=== PATIENT | male | born 1985 | race Caucasian/White ===

== ENCOUNTER 2021-05-31 14:04 | Inpatient (IN) | payer OTHER ==
[2021-05-31 15:38] VITALS: BMI 29.0
[2021-05-31] MEDS ORDERED: guaiFENesin 200 MG/10 ML 10 ML UNIT-DOSE CUPS PO PRN (16:17)
[2021-05-31] MEDS ORDERED: MAGNESIUM HYDROX 2400MG/30ML ORAL SUSPENSION 30 ML CUP PO PRN (16:17)
[2021-05-31] MEDS ORDERED: NICOTINE 10 MG CARTRIDGE (INHALER) IH PRN (16:17)
[2021-05-31] MEDS ORDERED: IBUPROFEN 400 MG TABLET (FP) PO PRN (16:17)
[2021-05-31] MEDS ORDERED: MAGNESIUM CITRATE 300 ML BOTTLE PO PRN (16:17)
[2021-05-31] MEDS ORDERED: LOPERAMIDE HCL 2 MG CAPSULE PO PRN (16:17)
[2021-05-31] MEDS ORDERED: P-EPHED 60MG/TRIPROLIDI 2.5MG TABLET PO PRN (16:17)
[2021-05-31] MEDS ORDERED: methaDONE HCL 10 MG TABLET (FOR DETOX USE ONLY) PO ONE (16:24)
[2021-05-31] MEDS: hydrOXYzine PAMOATE 25 MG CAPSULE (FP) PO SCH ×2 (18:27→21:25)
[2021-05-31] MEDS ORDERED: methaDONE HCL 10 MG TABLET PO ONE (18:30)
[2021-05-31] MEDS: THIAMINE HCL 100 MG TABLET (FP) PO SCH (21:25)
[2021-05-31] MEDS: GABAPENTIN 300 MG CAPSULE PO SCH (21:25)
[2021-05-31] MEDS ORDERED: MELATONIN 5 MG TABLETS PO SCH (22:00)
[2021-06-01] MEDS: GABAPENTIN 300 MG CAPSULE PO SCH ×3 (06:27→21:48)
[2021-06-01] MEDS: hydrOXYzine PAMOATE 25 MG CAPSULE (FP) PO SCH ×5 (06:27→23:42)
[2021-06-01] MEDS ORDERED: PT OWN MED DRAWER 7, Y5N ONE (08:49)
[2021-06-01] MEDS: PRENATAL VITAMINS W/ FOLIC ACID TABLET (FP) PO SCH (10:06)
[2021-06-01] MEDS: NICOTINE 14 MG/24 HOURS TOPICAL PATCH TD SCH (10:06)
[2021-06-01] MEDS: METHIMAZOLE 10 MG TABLET PO SCH (10:06)
[2021-06-01] MEDS ORDERED: methaDONE HCL 10 MG TABLET ONE (13:01)
[2021-06-01] MEDS ORDERED: methaDONE HCL 40 MG DISPERSABLE TABLET ONE (13:01)
[2021-06-01] MEDS: methaDONE 40 MG, methaDONE 30 MG PO SCH (13:02)
[2021-06-01 15:02] LABS: HEMATOCRIT 44.5 % (35.4-49); HEMOGLOBIN 15.3 GM/dL (11.7-16.9); MCH 31.7 pg (25.7-33.7); MCHC 34.3 g/dl (32.0-35.9); MEAN CELL VOLUME 92.6 fl (80-96); MEAN PLT VOLUME 10.2 fl (7.5-11.1); PLATELET COUNT 128 10^3/uL (134-434); RBC 4.81 M/mm3 (4.00-5.60); RDW 15.5 % (11.9-15.9); WHITE BLOOD COUNT 6.2 K/mm3 (4.0-10.0)
[2021-06-01 15:14] LABS: CREATININE 0.9 mg/dL (0.55-1.3)
[2021-06-01 15:17] LABS: ALBUMIN 4.1 g/dl (3.4-5.0); BILIRUBIN,TOTAL 1.3 mg/dL (0.2-1); BLOOD UREA NITROGEN 21.4 mg/dL (7-18)
[2021-06-01 15:19] LABS: CALCIUM 8.8 mg/dL (8.5-10.1)
[2021-06-01 15:32] LABS: SYPHILIS W/ RPR CONF NON-REACTIVE (NONREACTIVE)
[2021-06-01] MEDS: THIAMINE HCL 100 MG TABLET (FP) PO SCH (21:48)
[2021-06-01] MEDS: QUEtiapine FUMARATE 300 MG TABLET PO SCH (21:48)
[2021-06-02] MEDS ORDERED: methaDONE HCL 40 MG DISPERSABLE TABLET ONE (03:39)
[2021-06-02] MEDS ORDERED: methaDONE HCL 10 MG TABLET ONE (03:39)
[2021-06-02] MEDS ORDERED: PT OWN MED DRAWER 7, Y5N ONE (07:27)
[2021-06-02] MEDS: methaDONE 40 MG, methaDONE 30 MG PO SCH (07:48)
[2021-06-02] MEDS: hydrOXYzine PAMOATE 25 MG CAPSULE (FP) PO SCH ×5 (07:48→21:48)
[2021-06-02] MEDS: GABAPENTIN 300 MG CAPSULE PO SCH ×3 (07:48→21:48)
[2021-06-02] MEDS: NICOTINE 14 MG/24 HOURS TOPICAL PATCH TD SCH (10:09)
[2021-06-02] MEDS: PRENATAL VITAMINS W/ FOLIC ACID TABLET (FP) PO SCH (10:09)
[2021-06-02] MEDS: METHIMAZOLE 10 MG TABLET PO SCH (10:09)
[2021-06-02 15:51] LABS: PH,URINE 6.5 (5.0-8.0); URINE APPEARANCE CLEAR; URINE BILIRUBIN NEGATIVE (NEGATIVE); URINE COLOR YELLOW; URINE GLUCOSE (UA) NEGATIVE (NEGATIVE); URINE KETONE NEGATIVE (NEGATIVE); URINE LEUK ESTERASE NEGATIVE (NEGATIVE); URINE NITRITE NEGATIVE (NEGATIVE); URINE PROTEIN NEGATIVE (NEGATIVE); URINE UROBILINOGEN 0.2 mg/dL (0.2-1.0)
[2021-06-02] MEDS: THIAMINE HCL 100 MG TABLET (FP) PO SCH (21:48)
[2021-06-02] MEDS: QUEtiapine FUMARATE 300 MG TABLET PO SCH (21:48)
[2021-06-03] MEDS ORDERED: methaDONE HCL 10 MG TABLET ONE (04:03)
[2021-06-03] MEDS ORDERED: methaDONE HCL 40 MG DISPERSABLE TABLET ONE (04:04)
[2021-06-03] MEDS: methaDONE 40 MG, methaDONE 30 MG PO SCH (06:40)
[2021-06-03] MEDS: GABAPENTIN 300 MG CAPSULE PO SCH ×3 (06:40→21:15)
[2021-06-03] MEDS: hydrOXYzine PAMOATE 25 MG CAPSULE (FP) PO SCH ×5 (07:30→21:16)
[2021-06-03] MEDS: METHIMAZOLE 10 MG TABLET PO SCH (11:05)
[2021-06-03] MEDS: PRENATAL VITAMINS W/ FOLIC ACID TABLET (FP) PO SCH (11:05)
[2021-06-03] MEDS: NICOTINE 14 MG/24 HOURS TOPICAL PATCH TD SCH (11:05)
[2021-06-03] MEDS: MAG HYDROX/AL HYDROX/SIMETH 30 ML UNIT-DOSE CUP PO PRN (11:06)
[2021-06-03] MEDS: THIAMINE HCL 100 MG TABLET (FP) PO SCH (21:15)
[2021-06-03] MEDS: QUEtiapine FUMARATE 300 MG TABLET PO SCH (21:15)
[2021-06-04] MEDS ORDERED: methaDONE HCL 40 MG DISPERSABLE TABLET ONE (03:54)
[2021-06-04] MEDS ORDERED: methaDONE HCL 10 MG TABLET ONE (03:54)
[2021-06-04] MEDS: GABAPENTIN 300 MG CAPSULE PO SCH ×3 (06:27→21:05)
[2021-06-04] MEDS: methaDONE 40 MG, methaDONE 30 MG PO SCH (06:27)
[2021-06-04] MEDS: hydrOXYzine PAMOATE 25 MG CAPSULE (FP) PO SCH ×3 (07:03→14:01)
[2021-06-04] MEDS: NICOTINE 14 MG/24 HOURS TOPICAL PATCH TD SCH (09:20)
[2021-06-04] MEDS: PRENATAL VITAMINS W/ FOLIC ACID TABLET (FP) PO SCH (09:21)
[2021-06-04] MEDS: METHIMAZOLE 10 MG TABLET PO SCH (09:22)
[2021-06-04] MEDS ORDERED: hydrOXYzine PAMOATE 25 MG CAPSULE (FP) PO PRN (15:08)
[2021-06-04] MEDS: THIAMINE HCL 100 MG TABLET (FP) PO SCH (21:05)
[2021-06-04] MEDS: QUEtiapine FUMARATE 300 MG TABLET PO SCH (21:05)
[2021-06-05] MEDS ORDERED: methaDONE HCL 40 MG DISPERSABLE TABLET ONE (03:40)
[2021-06-05] MEDS ORDERED: methaDONE HCL 10 MG TABLET ONE (03:40)
[2021-06-05] MEDS: methaDONE 40 MG, methaDONE 30 MG PO SCH (06:37)
[2021-06-05] MEDS: GABAPENTIN 300 MG CAPSULE PO SCH ×3 (06:37→21:44)
[2021-06-05] MEDS: NICOTINE 14 MG/24 HOURS TOPICAL PATCH TD SCH (09:30)
[2021-06-05] MEDS: METHIMAZOLE 10 MG TABLET PO SCH (09:30)
[2021-06-05] MEDS: PRENATAL VITAMINS W/ FOLIC ACID TABLET (FP) PO SCH (09:30)
[2021-06-05] MEDS: THIAMINE HCL 100 MG TABLET (FP) PO SCH (21:44)
[2021-06-05] MEDS: QUEtiapine FUMARATE 300 MG TABLET PO SCH (21:44)
[2021-06-06] MEDS ORDERED: methaDONE HCL 10 MG TABLET ONE (03:25)
[2021-06-06] MEDS ORDERED: methaDONE HCL 40 MG DISPERSABLE TABLET ONE (03:25)
[2021-06-06] MEDS: GABAPENTIN 300 MG CAPSULE PO SCH ×3 (06:50→21:52)
[2021-06-06] MEDS: methaDONE 40 MG, methaDONE 30 MG PO SCH (06:50)
[2021-06-06] MEDS: NICOTINE 14 MG/24 HOURS TOPICAL PATCH TD SCH (09:54)
[2021-06-06] MEDS: PRENATAL VITAMINS W/ FOLIC ACID TABLET (FP) PO SCH (09:54)
[2021-06-06] MEDS: METHIMAZOLE 10 MG TABLET PO SCH (09:55)
[2021-06-06] MEDS ORDERED: PT OWN MED DRAWER 7, Y5N ONE (11:53)
[2021-06-06] MEDS: QUEtiapine FUMARATE 300 MG TABLET PO SCH (21:52)
[2021-06-06] MEDS: THIAMINE HCL 100 MG TABLET (FP) PO SCH (21:53)
[2021-06-07] MEDS ORDERED: methaDONE HCL 40 MG DISPERSABLE TABLET ONE (04:08)
[2021-06-07] MEDS ORDERED: methaDONE HCL 10 MG TABLET ONE (04:08)
[2021-06-07] MEDS: GABAPENTIN 300 MG CAPSULE PO SCH ×2 (06:44→21:05)
[2021-06-07] MEDS: methaDONE 40 MG, methaDONE 30 MG PO SCH (06:44)
[2021-06-07] MEDS: METHIMAZOLE 10 MG TABLET PO SCH (09:49)
[2021-06-07] MEDS: PRENATAL VITAMINS W/ FOLIC ACID TABLET (FP) PO SCH (09:49)
[2021-06-07] MEDS: NICOTINE 14 MG/24 HOURS TOPICAL PATCH TD SCH (09:50)
[2021-06-07] MEDS ORDERED: PT OWN MED DRAWER 7, Y5N ONE (15:41)
[2021-06-07] MEDS: MAG HYDROX/AL HYDROX/SIMETH 30 ML UNIT-DOSE CUP PO PRN (18:48)
[2021-06-07] MEDS: THIAMINE HCL 100 MG TABLET (FP) PO SCH (21:04)
[2021-06-07] MEDS: QUEtiapine FUMARATE 300 MG TABLET PO SCH (21:04)
[2021-06-08] MEDS ORDERED: methaDONE HCL 10 MG TABLET ONE (03:30)
[2021-06-08] MEDS ORDERED: methaDONE HCL 40 MG DISPERSABLE TABLET ONE (03:31)
[2021-06-08] MEDS: methaDONE 40 MG, methaDONE 30 MG PO SCH (06:51)
[2021-06-08] MEDS ORDERED: PT OWN MED DRAWER 7, Y5N ONE ×2 (07:01→08:27)
[2021-06-08] MEDS: METHIMAZOLE 10 MG TABLET PO SCH ×2 (08:17→08:24)
[2021-06-08] MEDS: PRENATAL VITAMINS W/ FOLIC ACID TABLET (FP) PO SCH (09:50)
[2021-06-08] MEDS: NICOTINE 14 MG/24 HOURS TOPICAL PATCH TD SCH (09:50)
[2021-06-08] MEDS: GABAPENTIN 300 MG CAPSULE PO SCH ×2 (09:50→21:49)
[2021-06-08] MEDS: QUEtiapine FUMARATE 300 MG TABLET PO SCH (21:49)
[2021-06-08] MEDS: THIAMINE HCL 100 MG TABLET (FP) PO SCH (21:49)
[2021-06-09] MEDS ORDERED: methaDONE HCL 10 MG TABLET ONE (03:48)
[2021-06-09] MEDS ORDERED: methaDONE HCL 40 MG DISPERSABLE TABLET ONE (03:48)
[2021-06-09] MEDS ORDERED: PT OWN MED DRAWER 7, Y5N ONE ×3 (03:49→16:18)
[2021-06-09] MEDS: methaDONE 40 MG, methaDONE 30 MG PO SCH (06:42)
[2021-06-09] MEDS: METHIMAZOLE 10 MG TABLET PO SCH (06:43)
[2021-06-09] MEDS: GABAPENTIN 300 MG CAPSULE PO SCH ×2 (09:06→21:37)
[2021-06-09] MEDS: NICOTINE 14 MG/24 HOURS TOPICAL PATCH TD SCH (09:06)
[2021-06-09] MEDS: PRENATAL VITAMINS W/ FOLIC ACID TABLET (FP) PO SCH (09:06)
[2021-06-09] MEDS: QUEtiapine FUMARATE 300 MG TABLET PO SCH (21:37)
[2021-06-09] MEDS: THIAMINE HCL 100 MG TABLET (FP) PO SCH (21:38)
[2021-06-10] MEDS ORDERED: methaDONE HCL 10 MG TABLET ONE (02:45)
[2021-06-10] MEDS ORDERED: methaDONE HCL 40 MG DISPERSABLE TABLET ONE (02:46)
[2021-06-10] MEDS ORDERED: MASKS NR ONE (05:40)
[2021-06-10] MEDS: methaDONE 40 MG, methaDONE 30 MG PO SCH (06:19)
[2021-06-10] MEDS: METHIMAZOLE 10 MG TABLET PO SCH (06:22)
[2021-06-10] MEDS ORDERED: PT OWN MED DRAWER 7, Y5N ONE (06:23)
[2021-06-10] MEDS: GABAPENTIN 300 MG CAPSULE PO SCH ×2 (09:55→21:30)
[2021-06-10] MEDS: PRENATAL VITAMINS W/ FOLIC ACID TABLET (FP) PO SCH (09:56)
[2021-06-10] MEDS: NICOTINE 14 MG/24 HOURS TOPICAL PATCH TD SCH (09:56)
[2021-06-10] MEDS: THIAMINE HCL 100 MG TABLET (FP) PO SCH (21:30)
[2021-06-10] MEDS: QUEtiapine FUMARATE 300 MG TABLET PO SCH (21:30)
[2021-06-11] MEDS ORDERED: methaDONE HCL 10 MG TABLET ONE (03:28)
[2021-06-11] MEDS ORDERED: methaDONE HCL 40 MG DISPERSABLE TABLET ONE (03:28)
[2021-06-11] MEDS: METHIMAZOLE 10 MG TABLET PO SCH (06:46)
[2021-06-11] MEDS: methaDONE 40 MG, methaDONE 30 MG PO SCH (06:47)
[2021-06-11] MEDS: GABAPENTIN 300 MG CAPSULE PO SCH ×2 (09:53→21:39)
[2021-06-11] MEDS: NICOTINE 14 MG/24 HOURS TOPICAL PATCH TD SCH (09:53)
[2021-06-11] MEDS: PRENATAL VITAMINS W/ FOLIC ACID TABLET (FP) PO SCH (09:53)
[2021-06-11] MEDS ORDERED: PANTOPRAZOLE 20 MG TABLET PO SCH (10:00)
[2021-06-11] MEDS: QUEtiapine FUMARATE 300 MG TABLET PO SCH (21:39)
[2021-06-11] MEDS: THIAMINE HCL 100 MG TABLET (FP) PO SCH (21:39)
[2021-06-11] MEDS: ACETAMINOPHEN 325 MG TABLET (FP) PO PRN (21:40)
[2021-06-12] MEDS ORDERED: methaDONE HCL 40 MG DISPERSABLE TABLET ONE (04:14)
[2021-06-12] MEDS ORDERED: methaDONE HCL 10 MG TABLET ONE (04:14)
[2021-06-12] MEDS: METHIMAZOLE 10 MG TABLET PO SCH (06:36)
[2021-06-12] MEDS: methaDONE 40 MG, methaDONE 30 MG PO SCH (06:36)
[2021-06-12] MEDS: GABAPENTIN 300 MG CAPSULE PO SCH ×2 (10:10→21:40)
[2021-06-12] MEDS: PRENATAL VITAMINS W/ FOLIC ACID TABLET (FP) PO SCH (10:11)
[2021-06-12] MEDS: NICOTINE 14 MG/24 HOURS TOPICAL PATCH TD SCH (10:11)
[2021-06-12] MEDS: THIAMINE HCL 100 MG TABLET (FP) PO SCH (21:40)
[2021-06-12] MEDS: QUEtiapine FUMARATE 300 MG TABLET PO SCH (21:40)
[2021-06-13] MEDS ORDERED: methaDONE HCL 10 MG TABLET ONE (03:26)
[2021-06-13] MEDS ORDERED: methaDONE HCL 40 MG DISPERSABLE TABLET ONE (03:27)
[2021-06-13] MEDS ORDERED: PT OWN MED DRAWER 7, Y5N ONE (03:28)
[2021-06-13] MEDS: METHIMAZOLE 10 MG TABLET PO SCH (06:19)
[2021-06-13] MEDS: methaDONE 40 MG, methaDONE 30 MG PO SCH (06:19)
[2021-06-13] MEDS: GABAPENTIN 300 MG CAPSULE PO SCH ×2 (09:38→21:29)
[2021-06-13] MEDS: NICOTINE 14 MG/24 HOURS TOPICAL PATCH TD SCH (09:38)
[2021-06-13] MEDS: PRENATAL VITAMINS W/ FOLIC ACID TABLET (FP) PO SCH (09:38)
[2021-06-13] MEDS: THIAMINE HCL 100 MG TABLET (FP) PO SCH (21:29)
[2021-06-13] MEDS: QUEtiapine FUMARATE 300 MG TABLET PO SCH (21:29)
[2021-06-14] MEDS ORDERED: PT OWN MED DRAWER 7, Y5N ONE (04:05)
[2021-06-14] MEDS ORDERED: methaDONE HCL 10 MG TABLET ONE (05:59)
[2021-06-14] MEDS ORDERED: methaDONE HCL 40 MG DISPERSABLE TABLET ONE (05:59)
[2021-06-14] MEDS: methaDONE 40 MG, methaDONE 30 MG PO SCH (06:37)
[2021-06-14] MEDS: METHIMAZOLE 10 MG TABLET PO SCH (06:38)
[2021-06-14] MEDS: NICOTINE 14 MG/24 HOURS TOPICAL PATCH TD SCH (09:51)
[2021-06-14] MEDS: GABAPENTIN 300 MG CAPSULE PO SCH ×2 (09:51→21:25)
[2021-06-14] MEDS: PRENATAL VITAMINS W/ FOLIC ACID TABLET (FP) PO SCH (09:52)
[2021-06-14] MEDS: THIAMINE HCL 100 MG TABLET (FP) PO SCH (21:25)
[2021-06-14] MEDS: QUEtiapine FUMARATE 300 MG TABLET PO SCH (21:25)
[2021-06-15] MEDS ORDERED: PT OWN MED DRAWER 7, Y5N ONE (03:42)
[2021-06-15] MEDS ORDERED: methaDONE HCL 10 MG TABLET ONE (03:42)
[2021-06-15] MEDS ORDERED: methaDONE HCL 40 MG DISPERSABLE TABLET ONE (03:42)
[2021-06-15] MEDS: METHIMAZOLE 10 MG TABLET PO SCH (06:31)
[2021-06-15] MEDS: methaDONE 40 MG, methaDONE 30 MG PO SCH (06:31)
[2021-06-15] MEDS: NICOTINE 14 MG/24 HOURS TOPICAL PATCH TD SCH (09:56)
[2021-06-15] MEDS: GABAPENTIN 300 MG CAPSULE PO SCH ×2 (09:56→21:33)
[2021-06-15] MEDS: PRENATAL VITAMINS W/ FOLIC ACID TABLET (FP) PO SCH (09:57)
[2021-06-15] MEDS: QUEtiapine FUMARATE 300 MG TABLET PO SCH (21:33)
[2021-06-15] MEDS: THIAMINE HCL 100 MG TABLET (FP) PO SCH (21:34)
[2021-06-16] MEDS ORDERED: methaDONE HCL 10 MG TABLET ONE (04:15)
[2021-06-16] MEDS ORDERED: PT OWN MED DRAWER 7, Y5N ONE (04:16)
[2021-06-16] MEDS ORDERED: methaDONE HCL 40 MG DISPERSABLE TABLET ONE (04:16)
[2021-06-16] MEDS: methaDONE 40 MG, methaDONE 30 MG PO SCH (06:25)
[2021-06-16] MEDS: METHIMAZOLE 10 MG TABLET PO SCH (06:25)
[2021-06-16] MEDS: GABAPENTIN 300 MG CAPSULE PO SCH ×2 (09:34→22:20)
[2021-06-16] MEDS: PRENATAL VITAMINS W/ FOLIC ACID TABLET (FP) PO SCH (09:34)
[2021-06-16] MEDS: NICOTINE 14 MG/24 HOURS TOPICAL PATCH TD SCH (09:34)
[2021-06-16] MEDS: ACETAMINOPHEN 325 MG TABLET (FP) PO PRN (19:40)
[2021-06-16] MEDS: MAG HYDROX/AL HYDROX/SIMETH 30 ML UNIT-DOSE CUP PO PRN (19:40)
[2021-06-16] MEDS: THIAMINE HCL 100 MG TABLET (FP) PO SCH (22:20)
[2021-06-16] MEDS: QUEtiapine FUMARATE 300 MG TABLET PO SCH (22:20)
[2021-06-17] MEDS ORDERED: methaDONE HCL 40 MG DISPERSABLE TABLET ONE (03:33)
[2021-06-17] MEDS ORDERED: methaDONE HCL 10 MG TABLET ONE (03:33)
[2021-06-17] MEDS ORDERED: PT OWN MED DRAWER 7, Y5N ONE ×2 (03:33→06:45)
[2021-06-17] MEDS: methaDONE 40 MG, methaDONE 30 MG PO SCH (06:32)
[2021-06-17] MEDS: METHIMAZOLE 10 MG TABLET PO SCH (06:33)
[2021-06-17 06:47] VITALS: BP 128/87; PULSE 69; TEMP 97.5
[2021-06-17] MEDS: PRENATAL VITAMINS W/ FOLIC ACID TABLET (FP) PO SCH (09:05)
[2021-06-17] MEDS: GABAPENTIN 300 MG CAPSULE PO SCH (09:05)
[2021-06-17] MEDS: NICOTINE 14 MG/24 HOURS TOPICAL PATCH TD SCH (09:05)
== END 2021-06-17 09:05 | disposition home or self-care (01) | DRG 772 ==
LOC: YASAS 14:04 → Y3E 16:36
PROVIDERS: ADMIT Allergy & Immunology; ATTEND Allergy & Immunology
PROC: HZ42ZZZ Group Counseling for Substance Abuse Treatment, Cognitive-Behavioral (ICD-10-PCS; principal; 2021-05-31)
DX: F11.20 Opioid dependence, uncomplicated (principal); F14.20 Cocaine dependence, uncomplicated; F17.210 Nicotine dependence, cigarettes, uncomplicated; F19.280 Other psychoactive substance dependence with psychoactive substance-induced anxiety disorder; F19.24 Other psychoactive substance dependence with psychoactive substance-induced mood disorder; F43.10 Post-traumatic stress disorder, unspecified; B18.2 Chronic viral hepatitis C; E05.90 Thyrotoxicosis, unspecified without thyrotoxic crisis or storm; I10 Essential (primary) hypertension; C90.01 Multiple myeloma in remission; Z94.84 Stem cells transplant status; Z86.59 Personal history of other mental and behavioral disorders; Z59.01 Sheltered homelessness
CPT/HCPCS: 36415; 80053; 81003; 82962; 85027; 86780; 86803; 87522; 87811; C9803; U0003; U0005

== ENCOUNTER 2022-01-16 10:59 | Inpatient (IN) | payer OTHER ==
[2022-01-16 11:34] VITALS: BMI 25.1
[2022-01-16] MEDS ORDERED: LOPERAMIDE HCL 2 MG CAPSULE PO PRN (12:16)
[2022-01-16] MEDS ORDERED: DICYCLOMINE HCL 10 MG CAPSULE PO PRN (12:16)
[2022-01-16] MEDS ORDERED: MAGNESIUM CITRATE 300 ML BOTTLE PO PRN (12:16)
[2022-01-16] MEDS ORDERED: ACETAMINOPHEN 325 MG TABLET (FP) PO PRN ×2 (12:16)
[2022-01-16] MEDS ORDERED: NICOTINE 10 MG CARTRIDGE (INHALER) IH PRN (12:16)
[2022-01-16] MEDS ORDERED: IBUPROFEN 600 MG TABLET (FP) PO PRN (12:16)
[2022-01-16] MEDS ORDERED: IBUPROFEN 400 MG TABLET (FP) PO PRN (12:16)
[2022-01-16] MEDS ORDERED: ONDANSETRON *ODT* 4 MG TABLET SL PRN (12:16)
[2022-01-16] MEDS ORDERED: chlordiazePOXIDE HCL 25 MG CAPSULE PO PRN (12:16)
[2022-01-16] MEDS ORDERED: BISMUTH SUBSALICYLATE 262 MG/15 ML BTL PO PRN (12:16)
[2022-01-16] MEDS ORDERED: MAGNESIUM HYDROX 2400MG/30ML ORAL SUSPENSION 30 ML CUP PO PRN (12:16)
[2022-01-16] MEDS ORDERED: BENZOCAINE/MENTHOL (CHLORASEPTIC ) LOZENGE MM PRN (12:16)
[2022-01-16] MEDS ORDERED: chlordiazePOXIDE HCL 25 MG CAPSULE ONE (12:27)
[2022-01-16] MEDS ORDERED: methaDONE HCL 10 MG TABLET PO SCH (12:30)
[2022-01-16] MEDS ORDERED: methaDONE HCL 40 MG DISPERSABLE TABLET ONE (13:18)
[2022-01-16] MEDS ORDERED: methaDONE HCL 10 MG TABLET ONE (13:18)
[2022-01-16] MEDS: methaDONE 40 MG, methaDONE 10 MG PO SCH (13:20)
[2022-01-16] MEDS: NICOTINE 14 MG/24 HOURS TOPICAL PATCH TD SCH (13:20)
[2022-01-16] MEDS: PRENATAL VITAMINS W/ FOLIC ACID TABLET (FP) PO SCH (13:25)
[2022-01-16] MEDS: hydrOXYzine PAMOATE 25 MG CAPSULE (FP) PO SCH ×3 (13:25→22:25)
[2022-01-16] MEDS: chlordiazePOXIDE HCL 25 MG CAPSULE PO SCH ×3 (14:10→22:25)
[2022-01-16] MEDS: METHOCARBAMOL 500 MG TABLET PO PRN (16:00)
[2022-01-16] MEDS: GABAPENTIN 300 MG CAPSULE PO SCH (22:25)
[2022-01-16] MEDS: MELATONIN 5 MG TABLETS PO SCH (22:25)
[2022-01-16] MEDS: THIAMINE HCL 100 MG TABLET (FP) PO SCH (22:25)
[2022-01-16] MEDS: QUEtiapine FUMARATE 100 MG TABLET (FP) PO SCH (22:25)
[2022-01-17] MEDS ORDERED: methaDONE HCL 40 MG DISPERSABLE TABLET ONE (04:34)
[2022-01-17] MEDS ORDERED: methaDONE HCL 10 MG TABLET ONE (04:34)
[2022-01-17] MEDS: chlordiazePOXIDE HCL 25 MG CAPSULE PO SCH ×4 (06:15→22:28)
[2022-01-17] MEDS: hydrOXYzine PAMOATE 25 MG CAPSULE (FP) PO SCH ×5 (06:16→22:28)
[2022-01-17] MEDS: methaDONE 40 MG, methaDONE 10 MG PO SCH (06:16)
[2022-01-17] MEDS: GABAPENTIN 300 MG CAPSULE PO SCH ×3 (06:16→22:28)
[2022-01-17] MEDS: METHIMAZOLE 10 MG TABLET PO SCH (10:14)
[2022-01-17] MEDS: NICOTINE 14 MG/24 HOURS TOPICAL PATCH TD SCH (10:15)
[2022-01-17] MEDS: PRENATAL VITAMINS W/ FOLIC ACID TABLET (FP) PO SCH (10:15)
[2022-01-17] MEDS: MAG HYDROX/AL HYDROX/SIMETH 30 ML UNIT-DOSE CUP PO PRN (11:54)
[2022-01-17 12:42] LABS: ALBUMIN 3.2 g/dl (3.4-5.0); BLOOD UREA NITROGEN 14.3 mg/dL (7-18); CALCIUM 8.5 mg/dL (8.5-10.1)
[2022-01-17 12:46] LABS: CREATININE 0.8 mg/dL (0.55-1.3)
[2022-01-17 12:47] LABS: BILIRUBIN,TOTAL 0.5 mg/dL (0.2-1); TOT PROT 6.4 g/dl (6.4-8.2)
[2022-01-17 12:54] LABS: HEMATOCRIT 38.8 % (35.4-49); HEMOGLOBIN 13.4 GM/dL (11.7-16.9); MCH 32.6 pg (25.7-33.7); MCHC 34.5 g/dl (32.0-35.9); MEAN CELL VOLUME 94.5 fl (80-96); MEAN PLT VOLUME 8.3 fl (7.5-11.1); PLATELET COUNT 120 10^3/uL (134-434); WHITE BLOOD COUNT 4.9 K/mm3 (4.0-10.0)
[2022-01-17] MEDS: MELATONIN 5 MG TABLETS PO SCH (22:27)
[2022-01-17] MEDS: QUEtiapine FUMARATE 100 MG TABLET (FP) PO SCH (22:28)
[2022-01-17] MEDS: THIAMINE HCL 100 MG TABLET (FP) PO SCH (22:28)
[2022-01-18] MEDS ORDERED: methaDONE HCL 10 MG TABLET ONE (04:13)
[2022-01-18] MEDS ORDERED: methaDONE HCL 40 MG DISPERSABLE TABLET ONE (04:14)
[2022-01-18] MEDS: GABAPENTIN 300 MG CAPSULE PO SCH ×3 (05:23→22:56)
[2022-01-18] MEDS: hydrOXYzine PAMOATE 25 MG CAPSULE (FP) PO SCH (05:23)
[2022-01-18] MEDS: methaDONE 40 MG, methaDONE 10 MG PO SCH (05:24)
[2022-01-18] MEDS: chlordiazePOXIDE HCL 25 MG CAPSULE PO SCH ×4 (05:24→22:57)
[2022-01-18] MEDS: NICOTINE 14 MG/24 HOURS TOPICAL PATCH TD SCH (10:35)
[2022-01-18] MEDS: PRENATAL VITAMINS W/ FOLIC ACID TABLET (FP) PO SCH (10:35)
[2022-01-18] MEDS: METHIMAZOLE 10 MG TABLET PO SCH (10:35)
[2022-01-18] MEDS: MAG HYDROX/AL HYDROX/SIMETH 30 ML UNIT-DOSE CUP PO PRN (14:34)
[2022-01-18] MEDS: MELATONIN 5 MG TABLETS PO SCH (22:56)
[2022-01-18] MEDS: QUEtiapine FUMARATE 100 MG TABLET (FP) PO SCH (22:56)
[2022-01-18] MEDS: METHOCARBAMOL 500 MG TABLET PO PRN (22:56)
[2022-01-18] MEDS: THIAMINE HCL 100 MG TABLET (FP) PO SCH (22:56)
[2022-01-19] MEDS ORDERED: chlordiazePOXIDE HCL 10 MG CAPSULE PO PRN
[2022-01-19] MEDS ORDERED: methaDONE HCL 10 MG TABLET ONE (04:13)
[2022-01-19] MEDS ORDERED: methaDONE HCL 40 MG DISPERSABLE TABLET ONE (04:13)
[2022-01-19] MEDS: methaDONE 40 MG, methaDONE 10 MG PO SCH (05:35)
[2022-01-19] MEDS: GABAPENTIN 300 MG CAPSULE PO SCH ×3 (05:35→22:28)
[2022-01-19] MEDS: chlordiazePOXIDE HCL 10 MG CAPSULE PO SCH ×4 (05:36→22:28)
[2022-01-19] MEDS: PRENATAL VITAMINS W/ FOLIC ACID TABLET (FP) PO SCH (10:27)
[2022-01-19] MEDS: METHIMAZOLE 10 MG TABLET PO SCH (10:29)
[2022-01-19] MEDS: NICOTINE 14 MG/24 HOURS TOPICAL PATCH TD SCH (10:29)
[2022-01-19] MEDS: hydrOXYzine PAMOATE 25 MG CAPSULE (FP) PO PRN (12:32)
[2022-01-19] MEDS: THIAMINE HCL 100 MG TABLET (FP) PO SCH (22:28)
[2022-01-19] MEDS: MELATONIN 5 MG TABLETS PO SCH (22:28)
[2022-01-19] MEDS: QUEtiapine FUMARATE 100 MG TABLET (FP) PO SCH (22:28)
[2022-01-20] MEDS ORDERED: methaDONE HCL 10 MG TABLET ONE (04:00)
[2022-01-20] MEDS ORDERED: methaDONE HCL 40 MG DISPERSABLE TABLET ONE (04:01)
[2022-01-20] MEDS: methaDONE 40 MG, methaDONE 10 MG PO SCH (06:19)
[2022-01-20] MEDS: chlordiazePOXIDE HCL 10 MG CAPSULE PO SCH ×2 (06:19→17:49)
[2022-01-20] MEDS: GABAPENTIN 300 MG CAPSULE PO SCH ×3 (06:20→22:23)
[2022-01-20] MEDS: METHIMAZOLE 10 MG TABLET PO SCH (10:43)
[2022-01-20] MEDS: PRENATAL VITAMINS W/ FOLIC ACID TABLET (FP) PO SCH (10:43)
[2022-01-20] MEDS: MAG HYDROX/AL HYDROX/SIMETH 30 ML UNIT-DOSE CUP PO PRN (10:44)
[2022-01-20] MEDS: NICOTINE 14 MG/24 HOURS TOPICAL PATCH TD SCH (10:45)
[2022-01-20] MEDS: QUEtiapine FUMARATE 100 MG TABLET (FP) PO SCH (22:23)
[2022-01-20] MEDS: MELATONIN 5 MG TABLETS PO SCH (22:23)
[2022-01-20] MEDS: THIAMINE HCL 100 MG TABLET (FP) PO SCH (22:23)
[2022-01-21] MEDS ORDERED: methaDONE HCL 10 MG TABLET ONE (04:52)
[2022-01-21] MEDS ORDERED: methaDONE HCL 40 MG DISPERSABLE TABLET ONE (04:52)
[2022-01-21] MEDS ORDERED: chlordiazePOXIDE HCL 10 MG CAPSULE PO ONE (05:00)
[2022-01-21] MEDS: methaDONE 40 MG, methaDONE 10 MG PO SCH (06:21)
[2022-01-21] MEDS: GABAPENTIN 300 MG CAPSULE PO SCH (06:21)
[2022-01-21 09:41] VITALS: BP 112/60; PULSE 70; TEMP 97.7
[2022-01-21] MEDS: hydrOXYzine PAMOATE 25 MG CAPSULE (FP) PO PRN (10:19)
[2022-01-21] MEDS: METHIMAZOLE 10 MG TABLET PO SCH (10:20)
[2022-01-21] MEDS: PRENATAL VITAMINS W/ FOLIC ACID TABLET (FP) PO SCH (10:20)
[2022-01-21] MEDS: NICOTINE 14 MG/24 HOURS TOPICAL PATCH TD SCH (10:21)
== END 2022-01-21 10:55 | disposition home or self-care (01) | DRG 773 ==
LOC: YASAS 10:59 → Y3N 12:09
PROVIDERS: ADMIT Allergy & Immunology; ATTEND Surgery
PROC: HZ2ZZZZ Detoxification Services for Substance Abuse Treatment (ICD-10-PCS; principal; 2022-01-16)
DX: F10.230 Alcohol dependence with withdrawal, uncomplicated (principal); F11.20 Opioid dependence, uncomplicated; F12.10 Cannabis abuse, uncomplicated; F17.210 Nicotine dependence, cigarettes, uncomplicated; F19.24 Other psychoactive substance dependence with psychoactive substance-induced mood disorder; F32.9 Major depressive disorder, single episode, unspecified; F41.9 Anxiety disorder, unspecified; F43.10 Post-traumatic stress disorder, unspecified; I10 Essential (primary) hypertension; R73.09 Other abnormal glucose; E05.90 Thyrotoxicosis, unspecified without thyrotoxic crisis or storm; B18.2 Chronic viral hepatitis C; G47.00 Insomnia, unspecified; C90.01 Multiple myeloma in remission; Z56.0 Unemployment, unspecified; Z59.00 Homelessness unspecified
CPT/HCPCS: 36415; 80053; 85027; 86780; 87811; C9803-CS; U0003; U0005